=== PATIENT | male | born 1970 | race Caucasian/White ===

== ENCOUNTER 2018-11-14 15:48 | Emergency (ER) | payer OTHER, SELFPAY ==
[2018-11-14 15:49] VITALS: BP 112/89; PULSE 91; RESP 14; TEMP 37.1; O2SAT 99
--- NOTE | 2018-11-14 15:51 | DI.RAD_ITS ---
SYMPTOM/DIAGNOSIS: PAIN, FELL SKIING RIGHT LEG: Three views were obtained. There is a spiral, moderately displaced fracture of the mid tibia and a proximal mildly displaced fibular fracture. No additional fractures seen. RIGHT ANKLE: Two views were obtained and show an intact an ankle mortise with spiral fracture of the mid to distal tibia. No additional fracture is seen in the bones of the ankle.
--- NOTE | 2018-11-14 15:52 | W.ED.GENAD ---
Discharge Plan Disposition Patient Disposition: HOME Condition: Stable Discharge Details Chief Complaint: Orthopedic Clinical Impression: Closed fracture of right tibia and fibula Reason For Visit: [facility] ED Provider: Rodolfo Sainz Home Meds and New Rx's Prescriptions: New oxycodone 5 mg tablet 5 mg PO Q6H PRN (Reason: pain) Qty: 12 RF: 0 Discharge Instructions Instructions: Leg Fracture (ED) Additional Instructions: you need to call your primary care provider tomorrow and get an orthopedic referral as soon as possible for a tibia and fibula fracture. take 1000mg tylenol and 600mg ibuprofen every 6 hours, if you need additional pain relief take 1 oxycodone (do not drink alcohol or drive if you take this medicine) if pain is becoming more severe and not controlled with medications return to the emergency department Medical Decision Making 48 yo male who denies chronic medical problems who comes in with chief complaint of right ankle pain. He was skiing wearing a helmet when he caught an edge and hurt his right ankle. DEnies hitting his head, had no loc and denies n/v. HE has no neck pain even on rom. No chest pain, back pain, abd pain. He has no pain in left leg and neither arm. He has pain in the right ankle with swelling, intact distal sensation does have full rom with plantar flexion though with pain. 2+ dp/pt pulses. Will image leg to eval for fx/dislocation xray confirms tibia and fibula fx. He continues to have soft muscles, intact sensation and 2+ pulses so doubt compartment syndrome. Discussed the case with Dr. Snyder who advised short leg posterior splint and if the pt wants to stay in the area he can operate tomorrow otherwise he needs to see an orthopedist michelle when he returns to [facility] tomorrow. PT decided he wants to go home. I placed splint and advised non weight bearing and indications to go to the ED if symptoms of compartment syndrome develop Differential Diagnosis fx, dislocation, contusion Imaging Data Radiologic Study: Attestation: I personally reviewed and interpreted this imaging study as follows: Imaging: X-Ray Radiologist's impression: EXAM: XR Right Tibia and Fibula, 2 Views EXAM DATE/TIME: 11/14/2018 4:26 PM CLINICAL HISTORY: 48 years old, male; Injury or trauma; Injury history: Fall while skiing; Initial encounter; Swelling (edema); Lower leg; Right; Injury date: 11/14/2018 TECHNIQUE: XR Right tibia and fibula 2 views COMPARISON: No relevant prior studies available. FINDINGS: Bones/joints: Bony mineralization is within normal limits. There is spiral fracture of the tibia. The proximal aspect begins in the mid tibial diaphysis, the distal aspect extends to the distal tibial metadiaphysis. There is slight posterior displacement of the proximal tibia relative to the distal. There is also oblique fracture of the proximal fibula. The distal fibula is intact. Mild degenerative changes are seen in the knee. Soft tissues: There is soft tissue swelling of the right lower extremity. IMPRESSION: Fractures of the tibia, proximal fibula as described above. Thank you for allowing us to participate in the care of your patient Radiologic Study #2: Attestation: I personally reviewed and interpreted this imaging study as follows: Imaging: X-Ray Radiologist's impression: EXAM: XR Right Ankle Complete, 3 or more Views EXAM DATE/TIME: 11/14/2018 4:26 PM CLINICAL HISTORY: 48 years old, male; Injury or trauma; Injury history: Fall while skiing; Initial encounter; Blunt trauma; Ankle; Right; Injury date: 11/14/2018 TECHNIQUE: XR Right ankle 3 or more views. COMPARISON: No relevant prior studies available. Tib-fib dictated separately FINDINGS: Bones/joints: Bony mineralization is within normal limits. There is spiral fracture of the tibia, the distal aspect extends to the tibial metadiaphysis. There is slight posterior displacement of the proximal fracture fragment. There is no evidence of fracture of the distal fibula. The mortise joint is intact. Soft tissues: There is soft tissue swelling of the ankle. IMPRESSION: Spiral fracture distal tibia as described. HPI General Mode of arrival: EMS. Date/Time Provider Initiated Documentation: 11/14/18 15:51. Limitations to Documentation: no limitations. Information obtained by: patient. History of Present Illness 48 year old M presents to the emergency department with the chief complaint of right ankle pain, described as moderate, with intensity rated at 2 (after fentanyl with ems). Quality is described as stabbing and aching, and is localized to the right and lower extremity. Patient started experiencing this hour(s) (1) and it has been constant. No relieving factors improve symptom(s), No exacerbating factors reported . Related Data Home Medications Medication Instructions Recorded Confirmed oxycodone 5 mg PO Q6H PRN #12 tab 11/14/18 Previous Rx's Medication Instructions Recorded oxycodone 5 mg PO Q6H PRN #12 tab 11/14/18 Allergies Allergy/AdvReac Type Severity Reaction Status Date / Time Penicillins Allergy Unverified 11/14/18 15:53 Review of Systems Review of Systems All systems reviewed & are unremarkable except as noted in HPI and below Constitutional Denies chills, Denies fever(s) and Denies weakness ENT Denies change in voice Cardiovascular Denies chest pain and Denies dyspnea Respiratory Denies cough and Denies dyspnea Gastrointestinal Denies abdominal pain, Denies nausea and Denies vomiting Integumentary/Breasts Denies rash Neurologic Denies weakness [facility] Social History Smoking and Tabacco status: Never Exam Const General: no acute distress Orientation: alert HENMT Head: normal to inspection Ears: external ears normal General nose exam: external nose normal Mouth: moist mucous membranes Eyes General: appearance normal, both eyes and all related structures Neck Neck: normal visual inspection Resp Effort & Inspection: normal respiratory effort and able to speak in complete sentences Cardio Rate: regular rate Skin General skin exam: no rashes or lesions noted Neuro General: alert and oriented x3 Extrem General: normal capillary refill Psych Mental Status: mental status grossly normal
--- NOTE | 2018-11-14 15:56 | ED.GENADUL_ITS ---
Discharge Plan Disposition Patient Disposition: HOME Condition: Stable Discharge Details Chief Complaint: Orthopedic Clinical Impression: Closed fracture of right tibia and fibula Reason For Visit: [facility] ED Provider: Rodolfo Sainz Home Meds and New Rx's Prescriptions: New oxycodone 5 mg tablet 5 mg PO Q6H PRN (Reason: pain) Qty: 12 RF: 0 Discharge Instructions Instructions: Leg Fracture (ED) Additional Instructions: you need to call your primary care provider tomorrow and get an orthopedic referral as soon as possible for a tibia and fibula fracture. take 1000mg tylenol and 600mg ibuprofen every 6 hours, if you need additional pain relief take 1 oxycodone (do not drink alcohol or drive if you take this medicine) if pain is becoming more severe and not controlled with medications return to the emergency department Medical Decision Making 48 yo male who denies chronic medical problems who comes in with chief complaint of right ankle pain. He was skiing wearing a helmet when he caught an edge and hurt his right ankle. DEnies hitting his head, had no loc and denies n/v. HE has no neck pain even on rom. No chest pain, back pain, abd pain. He has no pain in left leg and neither arm. He has pain in the right ankle with swelling, intact distal sensation does have full rom with plantar flexion though with pain. 2+ dp /pt pulses. Will image leg to eval for fx/dislocation xray confirms tibia and fibula fx. He continues to have soft muscles, intact sensation and 2+ pulses so doubt compartment syndrome. Discussed the case with Dr. Snyder who advised short leg posterior splint and if the pt wants to stay in the area he can operate tomorrow otherwise he needs to see an orthopedist michelle when he returns to [facility] tomorrow. PT decided he wants to go home. I placed splint and advised non weight bearing and indications to go to the ED if symptoms of compartment syndrome develop Differential Diagnosis fx, dislocation, contusion Imaging Data Radiologic Study: Attestation: I personally reviewed and interpreted this imaging study as follows: Imaging: X-Ray Radiologist's impression: EXAM: XR Right Tibia and Fibula, 2 Views EXAM DATE/TIME: 11/14/2018 4:26 PM CLINICAL HISTORY: 48 years old, male; Injury or trauma; Injury history: Fall while skiing; Initial encounter; Swelling (edema); Lower leg; Right; Injury date: 11/14/2018 TECHNIQUE: XR Right tibia and fibula 2 views COMPARISON: No relevant prior studies available. FINDINGS: Bones/joints: Bony mineralization is within normal limits. There is spiral fracture of the tibia. The proximal aspect begins in the mid tibial diaphysis, the distal aspect extends to the distal tibial metadiaphysis. There is slight posterior displacement of the proximal tibia relative to the distal. There is also oblique fracture of the proximal fibula. The distal fibula is intact. Mild degenerative changes are seen in the knee. Soft tissues: There is soft tissue swelling of the right lower extremity. IMPRESSION: Fractures of the tibia, proximal fibula as described above. Thank you for allowing us to participate in the care of your patient Radiologic Study #2: Attestation: I personally reviewed and interpreted this imaging study as follows: Imaging: X-Ray Radiologist's impression: EXAM: XR Right Ankle Complete, 3 or more Views EXAM DATE/TIME: 11/14/2018 4:26 PM CLINICAL HISTORY: 48 years old, male; Injury or trauma; Injury history: Fall while skiing; Initial encounter; Blunt trauma; Ankle; Right; Injury date: 11/14/2018 TECHNIQUE: XR Right ankle 3 or more views. COMPARISON: No relevant prior studies available. Tib-fib dictated separately FINDINGS: Bones/joints: Bony mineralization is within normal limits. There is spiral fracture of the tibia, the distal aspect extends to the tibial metadiaphysis. There is slight posterior displacement of the proximal fracture fragment. There is no evidence of fracture of the distal fibula. The mortise joint is intact. Soft tissues: There is soft tissue swelling of the ankle. IMPRESSION: Spiral fracture distal tibia as described. HPI General Mode of arrival: EMS . Date/Time Provider Initiated Documentation: 11/14/18 15:51 . Limitations to Documentation: no limitations . Information obtained by: patient . History of Present Illness 48 year old M presents to the emergency department with the chief complaint of right ankle pain, described as moderate, with intensity rated at 2 (after fentanyl with ems). Quality is described as stabbing and aching, and is localized to the right and lower extremity. Patient started experiencing this hour(s) (1) and it has been constant. No relieving factors improve symptom(s), No exacerbating factors reported . Related Data Home Medications Medication Instructions Recorded Confirmed oxycodone 5 mg PO Q6H PRN #12 tab 11/14/18 Previous Rx's Medication Instructions Recorded oxycodone 5 mg PO Q6H PRN #12 tab 11/14/18 Allergies Allergy/AdvReac Type Severity Reaction Status Date / Time Penicillins Allergy Unverified 11/14/18 15:53 Review of Systems Review of Systems All systems reviewed & are unremarkable except as noted in HPI and below Constitutional Denies chills, Denies fever(s) and Denies weakness ENT Denies change in voice Cardiovascular Denies chest pain and Denies dyspnea Respiratory Denies cough and Denies dyspnea Gastrointestinal Denies abdominal pain, Denies nausea and Denies vomiting Integumentary/Breasts Denies rash Neurologic Denies weakness [facility] Social History Smoking and Tabacco status: Never Exam Const General: no acute distress Orientation: alert HENMT Head: normal to inspection Ears: external ears normal General nose exam: external nose normal Mouth: moist mucous membranes Eyes General: appearance normal, both eyes and all related structures Neck Neck: normal visual inspection Resp Effort & Inspection: normal respiratory effort and able to speak in complete sentences Cardio Rate: regular rate Skin General skin exam: no rashes or lesions noted Neuro General: alert and oriented x3 Extrem General: normal capillary refill Psych Mental Status: mental status grossly normal
[2018-11-14 16:36] VITALS: BP 140/85; PULSE 84; RESP 18; O2SAT 97
[2018-11-14 16:37] VITALS: BP 127/87; PULSE 86; RESP 18; O2SAT 97
--- NOTE | 2018-11-14 16:42 | DI.VRAD_ITS ---
EXAM: XR Right Ankle Complete, 3 or more Views EXAM DATE/TIME: 11/14/2018 4:26 PM CLINICAL HISTORY: 48 years old, male; Injury or trauma; Injury history: Fall while skiing; Initial encounter; Blunt trauma; Ankle; Right; Injury date: 11/14/2018 TECHNIQUE: XR Right ankle 3 or more views. COMPARISON: No relevant prior studies available. Tib-fib dictated separately FINDINGS: Bones/joints: Bony mineralization is within normal limits. There is spiral fracture of the tibia, the distal aspect extends to the tibial metadiaphysis. There is slight posterior displacement of the proximal fracture fragment. There is no evidence of fracture of the distal fibula. The mortise joint is intact. Soft tissues: There is soft tissue swelling of the ankle. IMPRESSION: Spiral fracture distal tibia as described. Dictated and Authenticated by: Kenia Duke MD. Ordering:MICHEAL Reynolds MD
--- NOTE | 2018-11-14 16:45 | DI.VRAD_ITS ---
EXAM: XR Right Tibia and Fibula, 2 Views EXAM DATE/TIME: 11/14/2018 4:26 PM CLINICAL HISTORY: 48 years old, male; Injury or trauma; Injury history: Fall while skiing; Initial encounter; Swelling (edema); Lower leg; Right; Injury date: 11/14/2018 TECHNIQUE: XR Right tibia and fibula 2 views COMPARISON: No relevant prior studies available. FINDINGS: Bones/joints: Bony mineralization is within normal limits. There is spiral fracture of the tibia. The proximal aspect begins in the mid tibial diaphysis, the distal aspect extends to the distal tibial metadiaphysis. There is slight posterior displacement of the proximal tibia relative to the distal. There is also oblique fracture of the proximal fibula. The distal fibula is intact. Mild degenerative changes are seen in the knee. Soft tissues: There is soft tissue swelling of the right lower extremity. IMPRESSION: Fractures of the tibia, proximal fibula as described above. Dictated and Authenticated by: Kenia Duke MD. Ordering:MICHEAL Reynolds MD
[2018-11-14 16:52] VITALS: BP 136/98; PULSE 86; RESP 18; O2SAT 98
[2018-11-14 17:22] VITALS: BP 135/89; PULSE 84; RESP 18
[2018-11-14] MEDS: oxyCODONE 5 MG TAB PO (17:43)
== END 2018-11-14 17:50 | disposition home or self-care (01) ==
PROVIDERS: Emergency Provider Emergency Medicine
DX: S82.231A Displaced oblique fracture of shaft of right tibia, initial encounter for closed fracture (principal); S82.391A Other fracture of lower end of right tibia, initial encounter for closed fracture; S82.831A Other fracture of upper and lower end of right fibula, initial encounter for closed fracture; V00.318A Other snowboard accident, initial encounter
CPT/HCPCS: 99284; 73590; 73610; E0114

== ENCOUNTER 2018-11-15 10:12 | Day surgery (SDC) | payer OTHER, SELFPAY ==
[2018-11-15] VITALS (7 sets, daily range): BP systolic 122–133; BP diastolic 73–93; PULSE 66–84; RESP 15–19; TEMP 36.5–36.6; O2SAT 94–99
[2018-11-15] MEDS: oxyCODONE-CR 10 MG TABCR PO (11:10)
[2018-11-15] MEDS: Acetaminophen 500 MG TAB 1000 MG PO (11:10)
[2018-11-15] MEDS: Lactated Ringers 1,000 ML 80 ML IV ×2 (11:31→13:52)
--- NOTE | 2018-11-15 11:51 | DI.RAD_ITS ---
SYMPTOMS/DIAGNOSIS: CLOSED FRACTURE, RIGHT TIBIA/FIBULA RIGHT TIB/FIB: Fluoroscopy Time: 266 sec C-arm fluoroscopy was utilized by Dr. Snyder during open reduction and internal fixation of tibial fracture. Hard copies show intramedullary daphne transfixing tibial fracture fragments. Posterior malleolar fracture component is more easily seen than on initial films.
--- NOTE | 2018-11-15 12:13 | W.PM.HP.N ---
Date of service: 11/15/18 Time of Service: 12:13 Assessment and Plan (1) Fracture of right tibia and fibula: Start date: 11/14/18 Current visit: No Status: Acute Oliver is a 48-year-old who suffered a distal tibia and proximal fibula fracture of the right leg. X-rays were reviewed which demonstrate this oblique fracture pattern with rotational displacement. His pain is been well controlled. I did discuss treatment options with him. It is very reasonable to continue to keep this in a splint and then [facility] [place]. However, it is not unreasonable to consider fixation today to hopefully minimize pain and allow recovery to start occurring. Discussed risks and benefits of both methods. I also discussed the risk of surgery to include bleeding, infection, pain, stiffness, malunion, nonunion, damage to nerves and vessels, damage to muscle tendons, painful hardware, need for repeat procedures, blood clot. Despite these risks, he feels like he would be best benefited by proceed with surgery today. He is currently n.p.o. He has no major medical issues. I will provide him with a postoperative recovery plan that he may utilize with his primary care doctor or I can help him with seeing an orthopedic surgeon if necessary. Qualifiers: Encounter type: initial encounter Fracture type: closed Qualified Code(s): S82.201A - Unspecified fracture of shaft of right tibia, initial encounter for closed fracture; S82.401A - Unspecified fracture of shaft of right fibula, initial encounter for closed fracture History of Present Illness Chief Complaint: Right Tibia/Fibula Fracture Narrative: Oliver is a 48-year-old who was skiing at [employer] yesterday. [place] when he caught an edge and had a rotational injury to his right leg. He had immediate pop and now is unable to bear weight. He was brought to the emergency department by [employer] worker. In the emergency department he was diagnosed with a oblique distal tibia fracture. His pain was well controlled and was placed into a posterior splint. He denied any numbness or tingling. He currently has no numbness or tingling. His pain is well controlled. He is able to wiggle his toes. He denies pain in his hip, knee, or thigh. He did not have any loss of consciousness. He has no major medical issues. Review of Systems Review of Systems All systems reviewed & are unremarkable except as noted in HPI and below PFSH Social History Smoking and Tabacco status: Former Tobacco Use Meds Home Medications Medication Instructions Recorded Confirmed Type oxycodone 5 mg PO Q6H PRN #12 tab 11/14/18 11/15/18 Rx Allergies Allergy/AdvReac Type Severity Reaction Status Date / Time Penicillins Allergy Unverified 11/15/18 07:24 Exam Narrative Exam Narrative: No acute distress. Alert and oriented x3. Heart rate and rhythm are regular. Chest is clear to auscultation bilaterally. Evaluation of the right leg shows that is in a splint. There is some external rotation deformity of the right foot when compared to the patella. He is able to actively dorsiflex and plantar flex the toes without any increase in pain. He endorses full sensation over the deep insufficient peroneal nerve and tibial nerves. The foot and toes are warm and well perfused. Results Last Vital Signs Temp 36.5 C 11/15/18 10:39 Pulse 68 11/15/18 10:39 Resp 16 11/15/18 10:39 BP 133/93 H 11/15/18 10:39 Pulse Ox 99 11/15/18 10:39
--- NOTE | 2018-11-15 12:17 | HPE_ITS ---
Date of service: 11/15/18 Time of Service: 12:13 Assessment and Plan (1) Fracture of right tibia and fibula: Start date: 11/14/18 Current visit: No Status: Acute Oliver is a 48-year-old who suffered a distal tibia and proximal fibula fracture of the right leg. X-rays were reviewed which demonstrate this oblique fracture pattern with rotational displacement. His pain is been well controlled. I did discuss treatment options with him. It is very reasonable to continue to keep this in a splint and [facility] [place]. However, it is not unreasonable to consider fixation today to hopefully minimize pain and allow recovery to start occurring. Discussed risks and benefits of both methods. I also discussed the risk of surgery to include bleeding, infection, pain, stiffness, malunion, nonunion, damage to nerves and vessels, damage to muscle tendons, painful hardware, need for repeat procedures, blood clot. Despite these risks, he feels like he would be best benefited by proceed with surgery today. He is currently n.p.o. He has no major medical issues. I will provide him with a postoperative recovery plan that he may uti lize with his primary care doctor or I can help him with seeing an orthopedic surgeon if necessary. Qualifiers: Encounter type: initial encounter Fracture type: closed Qualified Code(s): S82.201A - Unspecified fracture of shaft of right tibia, initial encounter for closed fracture; S82.401A - Unspecified fracture of shaft of right fibula, initial encounter for closed fracture History of Present Illness Chief Complaint: Right Tibia/Fibula Fracture Narrative: Oliver is a 48-year-old who was skiing at [employer] yesterday. He was [place] the [place] when he caught an edge and had a rotational injury to his right leg. He had immediate pop and now is unable to bear weight. He was brought to the emergency department by ski topper. In the emergency department he was diagnosed with a oblique distal tibia fracture. His pain was well controlled and was placed into a posterior splint. He denied any numbness or tingling. He currently has no numbness or tingling. His pain is well controlled. He is able to wiggle his toes. He denies pain in his hip, knee, or thigh. He did not have any loss of consciousness. He has no major medical issues. Review of Systems Review of Systems All systems reviewed & are unremarkable except as noted in HPI and below PFSH Social History Smoking and Tabacco status: Former Tobacco Use Meds Home Medications Medication Instructions Recorded Confirmed Type oxycodone 5 mg PO Q6H PRN #12 tab 11/14/18 11/15/18 Rx Allergies Allergy/AdvReac Type Severity Reaction Status Date / Time Penicillins Allergy Unverified 11/15/18 07:24 Exam Narrative Exam Narrative: No acute distress. Alert and oriented x3. Heart rate and rhythm are regular. Chest is clear to auscultation bilaterally. Evaluation of the right leg shows that is in a splint. There is some external rotation deformity of the right foot when compared to the patella. He is able to actively dorsiflex and plantar flex the toes without any increase in pain. He endorses full sensation over the deep insufficient peroneal nerve and tibial nerves. The foot and toes are warm and well perfused. Results Last Vital Signs Temp 36.5 C 11/15/18 10:39 Pulse 68 11/15/18 10:39 Resp 16 11/15/18 10:39 BP 133/93 H 11/15/18 10:39 Pulse Ox 99 11/15/18 10:39
[2018-11-15] MEDS: Bupivacaine 0.5% Pres-Free 30 ML VIAL (14:09)
--- NOTE | 2018-11-15 14:49 | PDOC.DSDIS_ITS ---
Discharge Plan Disposition Patient Disposition: HOME Condition: Good Discharge Details Reason For Visit: R Tibia-Fibula Fracture Admit Date/Time: 11/15/18 10:12 Admit Provider: Hua Snyder Attending Provider: Hua Snyder Primary Care Provider: Emily,[facility] Home Meds and New Rx's Prescriptions: New acetaminophen 500 mg tablet 1,000 mg PO Q8H PRN (Reason: pain) Qty: 90 RF: 3 ibuprofen 600 mg tablet 600 mg PO TID PRNQty: 60 RF: 3 oxycodone 5 mg tablet 5 mg PO Q4H Qty: 12 RF: 0 Discontinued oxycodone 5 mg tablet 5 mg PO Q6H PRN (Reason: pain) Qty: 12 RF: 0 Discharge Instructions Additional Instructions: Activity: You are NON WEIGHT BEARING. You should keep the leg elevated as much as possible. You may wiggle your toes and move your hip and knee. See complete discharge protocol below. Dressings: You should keep your splint clean and dry. Do NOT get wet or dirty. If you have issues with your splint, please call and ask for Dr. Snyder. Medications: - You should take Tylenol and Ibuprofen around the clock for baseline pain. - You have been prescribed a stronger narcotic, Oxycodone, for breakthrough pain. - You should take a Baby Aspirin (81mg) twice a day for blood clot prevention. Follow-up: 2 weeks, 6 weeks, 3 months DISCHARGE PROTOCOL: Contact: You may reach Dr. Snyder at [email or web address]. Cell phone is [phone]. Please do not hesistate to reach out with any concerns or questions. Splint: You will wear the splint for the first 10-14 days. You should see your PCP or other provider to have the splint and sutures removed. After the splint has been removed you should apply the fracture walking boot. Placing a tube sock or stockinette over the leg prior to putting it in the boot is advised. After the splint is removed the wounds should be covered only if needed but usually not. Follow-up Plan: 0-2 weeks: Non weight bearing on the right leg. Keep elevated, especially for the first few days. You may move otherwise as tolerated. 2-6 weeks: Remove splint and sutures and wear the fracture walker boot. You may then start to progress your weight bearing starting with toe touch (just the weight of the leg) and advancing to full weight bearing as tolerated. You will use the crutches to help offload the weight as needed. You should focus on ankle, foot and knee range of motion. As long as you are not ambulating,you may have the boot off including showering/bathing. 6-12 week: X-ray at the 6 week visit. You should be nearing full weight bearing with the boot. Once you are fully weight bearing you may start to transition to a regular shoe but this may take some time. You should start Physical Therapy by the 6 week visit. 12-16 weeks: X-ray at 12 weeks to confirm alignment and healing. You should be full weight bearing and now working on strengthening and at this time you may start to progress into impact activities (running, jumping sports, etc.). Referrals: Hua Snyder MD [ [facility] STAFF PHYSICIAN] - Activity:: Elevate RLE. NWB for first 2 weeks Equipment/Supplies:: No Equipment Needed Diet:: As Tolerated Discharge Orders Discharge Orders: Discharge Order (Routine); Ordered 11/15/18 Ordered By: Hua Snyder DS: Diagnosis Discharge Diagnosis (1) Fracture of right tibia and fibula: Status: Acute
--- NOTE | 2018-11-15 17:21 | ROE_ITS ---
DATE OF SURGERY: November 15, 2018 PREOPERATIVE DIAGNOSIS: Right tibial fracture. POSTOPERATIVE DIAGNOSIS: Same. SURGERY: Intramedullary nail fixation of right tibia fracture. SURGEON: Hua Snyder M.D. BREWERY TECHNICIAN: Gina Pittman PA-C FINDINGS: There was a spiral fracture of the distal tibia with extension into the posterior malleolu s. There was also a proximal fibular fracture. This was transfixed with an intramedullary nail usin g a semi-extended nailing approach. ESTIMATED BLOOD LOSS: 50 cc's ANESTHESIA: Spinal. COMPLICATIONS: None. DISPOSITION: The patient was awakened from anesthesia and taken to the PACU in stable condition. INDICATION FOR PROCEDURE: Oliver is a 48-year-old who was skiing at [employer] yesterday. While co wanda down one of the trails, he caught an edge with a rotational force about the right leg and suffer ed a tibial shaft fracture. He was seen in the Emergency Department. A gentle reduction was perform ed and he was placed in a splint. Given the fracture pattern and his need for travel, he did decide to proceed with operative intervention. This was after I reviewed the risks of the procedure to incl ude bleeding, infection, pain, stiffness, malunion, nonunion, need for repeat procedures, damage to n erves and vessels, blood clot. Despite these risks, he elected to proceed. PROCEDURE DESCRIPTION: Oliver was greeted in the preoperative holding area. His identity was confirmed and the correct side was identified and marked. The consent was reviewed with the patient and andriy d. The history and physical was updated. He was taken back to the Operating Room. A spinal anesthe tic was administered. After successful spinal setup, we then proceeded with positioning on the table . All bony prominences were well-padded. The right leg was placed onto a foam ramp. The splint was removed. Prophylactic antibiotics in the form of Cefazolin were given. The right leg was then prep ped with Chloraprep and draped in a standard fashion. A time-out was performed for safe surgery. No tourniquet was place nor used. A 7 cm incision was made overlying the lateral aspect of the patella from the level of the patella do wn to just proximal to the tibial tubercle. This was incised sharply through the skin only. Once th is was incised, the layers were identified. The retinaculum was seen. The retinaculum was incised s harply. This was then taken down all the way to the synovial tissue and fat. Once this was identifi ed, blunt dissection was used to free away the synovial attachments to the undersurface of the patell ar tendon and exposed in the anterior aspect of the proximal tibia. The patella was able to be mobil ized out of the way. Using the awl, a starting point was made. This was in the central portion of t he notch just off the medial aspect of the lateral intercondylar spine. An x-ray was used to confirm this location. A lateral x-ray was also used to confirm that we were starting just off the lip of t he anterior tibia. The awl was then manually inserted into the proximal tibia. A ball-tipped guidew theresa was then advanced across the proximal tibia down to the level of the fracture. The awl was remov ed. At the level of the fracture, the C-arm was used to help reduction. Reduction was quite difficult. There was a significant amount of valgus angulation in addition to rotational deformity. The contral ateral limb was seen to have the big toe pointing up about the level of the patella. This was used a s our guideline. With the right leg we worked on both rotation and reducing this valgus deformity. The leg stayed reduced in the lateral position. With some traction, varus stressing and some slight internal rotation, the fracture was able to be reduced. A Witt rpiyz-cw-gzcqh clamp was then applie d across the fracture site. This was done percutaneously. This held the fracture in place and we we re able to take x-rays to confirm appropriate reduction. A ball-tipped guidewire was then advanced a cross the fracture site and down into the fracture itself, down into the distal tibia. It was seated into the physeal scar. This was then measured a size 345 mm. Reaming then began with a size 8.5 mm reamer. It was reamed all the way up to a size 12.5 mm reamer. There was a notable chatter. The f racture was observed, which noted some mild distraction, but no significant loss of reduction. The b all-tipped guidewire did seem to drift posteriorly more than we would like, but it still was within t he bone. There was also a notable posterior malleolar fragment, which was seen on the x-rays during the reduction and manipulation of the leg, which was not appreciated in the initial Emergency Departm ent films. However it was minimally displaced and approximately 20% of the joint surface. The 11 mm x 345 mm Synthes tibial EX nail was then inserted, first manually, then also with light mal let blows. It was able to be seated fully on the tibia and across the fracture. X-ray was utilized to observe the fracture to make sure there was no deformity of the fracture seen. The nail was then seated all the way down to the level of the physeal scar. There was some notable mild distraction of the fracture site. Once this was seated, it was checked both in the proximal position and distal po sition to make sure that it was appropriate size. Starting in the distal aspect, we used perfect circles to fix the nail into the distal tibia. One an hrpvez-di-vjygvhmeb screw was placed first. This was done by making perfect circles with the x-ray i ncising the skin, protecting the soft tissues and drilling across both cortices of the bone through t he nail. An appropriately-sized 5 mm screw was then placed. This was also repeated with an oblique chhabzlz-gy-cgrfswgoo screw starting lateral to medial. This was made slightly long in hopes to capt ure that posterior malleolar fragment, which seemed to be successful. A second lpkbrh-hq-jccgzku scr ew was placed as well. This made a total of three screws in the distal segment. The fracture site w as then identified and seemed to have some amount of distraction. I therefore placed some manual pre ssure onto the heel of the leg, in essence back-slapping the distal segment, back into the proximal s egment. This reduced the slight diastasis seen of the fracture. Using the proximal locking guide, t wo screws were placed proximally. One was through the dynamic hole and one was through the static ho le. Both of these had excellent purchase into the bone. The guide was then removed. Final x-rays w ere taken. This demonstrated the adequate reduction of the fracture with very minimal step-off. The re was no diastasis at the fracture site. The screws were through the bone and in through the nail. The nail was not prominent proximally. The wounds were then all irrigated. The distal screw holes were closed with Nylon. The proximal screw holes were closed with #2-0 Vicryl followed by Nylon. Th e retinaculum of the knee was closed with a #1 Vicryl. The deep tissues were closed with #2-0 Vicryl and the skin was closed with #4-0 Nylon. All tissues, both proximally and distally, were then injec alessandro with a mixture of 20 cc's of Exparel and 20 cc's of 0.5% Bupivacaine. The proximal wound was judith ssed with a Mepilex. The distal wounds were covered with Xeroform, 4x4's, ABD, and Webril. A short- leg posterior slab splint was applied. This was well-padded, making sure to have no areas of promine nce against the fiberglass. He was awakened from his light sedation and then transferred to the [facility] stretcher without any significant difficulties. There was no noted complication. All counts we re correct. At the end of the case, final x-rays were saved. He was transferred back to the PACU in a stable condition.
== END 2018-11-15 16:50 | disposition home or self-care (01) | DRG 494 ==
LOC: PDS 14:49 → DSU 11-20 15:24
PROVIDERS: Visit Provider Student in an Organized Health Care Education/Training Program
PROC: 0QSG06Z Reposition Right Tibia with Intramedullary Internal Fixation Device, Open Approach (ICD-10-PCS; CPT 27759; principal; 2018-11-15 11:00)
DX: S82.231A Displaced oblique fracture of shaft of right tibia, initial encounter for closed fracture (principal); S82.391A Other fracture of lower end of right tibia, initial encounter for closed fracture; S82.831A Other fracture of upper and lower end of right fibula, initial encounter for closed fracture; X50.0XXA Overexertion from strenuous movement or load, initial encounter; Y93.23 Activity, snow (alpine) (downhill) skiing, snowboarding, sledding, tobogganing and snow tubing; Y92.838 Other recreation area as the place of occurrence of the external cause
CPT/HCPCS: 27759; C1713; 76000; NC; 73590; J0690; J1100; J1885; J2250; J2405; J3010; L4361